=== PATIENT | male | born 1995 | race Caucasian/White ===

== ENCOUNTER 2021-08-22 03:04 | Emergency (ER) | payer OTHER ==
[~2021-08-22] VITALS: Ht 175.3 cm; Wt 81.6 kg
== END 2021-08-22 09:51 | disposition home or self-care (01) ==
LOC: ER 03:04
DX: N20.2 Calculus of kidney with calculus of ureter (principal); K59.09 Other constipation; B96.0 Mycoplasma pneumoniae [M. pneumoniae] as the cause of diseases classified elsewhere; R10.32 Left lower quadrant pain